=== PATIENT | female | born 1965 | race Caucasian/White ===

== ENCOUNTER 2017-05-16 12:30 | Emergency (ER) | payer MEDICARE ==
[2017-05-16 12:38] VITALS: BMI 21.1
[2017-05-16 12:46] VITALS: TEMP 97.8; O2SAT 100
[2017-05-16] MEDS ORDERED: Sodium Chloride 0.9% 1,000 ML IV STA (12:51)
[2017-05-16] MEDS ORDERED: DiphenhydrAMINE 50 mg/ml Inj IVP STA (12:51)
[2017-05-16 13:19] LABS: PH,URINE 6.5 (4.7-8.0); URINE BILIRUBIN NEGATIVE (NEGATIVE); URINE BLOOD NEGATIVE (NEGATIVE); URINE GLUCOSE (UA) NEGATIVE (NEGATIVE); URINE KETONE NEGATIVE (NEGATIVE); URINE LEUKOCYTE ESTERASE NEGATIVE Leu/uL (NEGATIVE); URINE PROTEIN NEGATIVE mg/dL (<30 mg/dL); URINE UROBILINOGEN 0.2 E.U./dL (<1 E.U./dL)
[2017-05-16 13:23] LABS: URINE APPEARANCE CLEAR (CLEAR); URINE COLOR YELLOW (YELLOW)
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
[2017-05-16 13:36] LABS: BASO # 0.02 K/mm3 (0.0-2.0); BASO % 0.3 % (0.0-3.0); EOS # 0.2 (0.0-0.7); EOS % 3.1 % (1.5-5.0); GRAN # 2.4 (1.4-6.5); GRAN % 31.8 % (50.0-68.0); HEMATOCRIT 32.5 % (36.0-48.0); LYMPH # 4.5 (1.2-3.4); LYMPH % 59.4 % (22.0-35.0); MEAN CELL VOLUME 90.8 fl (80.0-105.0); MEAN CORPUSCULAR HEMOGLOBIN 29.1 pg (25.0-35.0); MEAN PLATELET VOLUME 10.6 fl (7.0-11.0); MONO # 0.4 (0.1-0.6); MONO % 5.4 % (1.0-6.0); RED CELL DISTRIBUTION WIDTH 13.4 % (11.5-14.5); WHITE BLOOD COUNT 7.5 10^3/ul (4.5-11.0)
[2017-05-16 13:43] LABS: ALB/GLOB RATIO 1.5 (1.1-1.8); ALKALINE PHOSPHATASE 85 U/L (38-126); ALT/SGPT 70 U/L (7-56); AST/SGOT 81 U/L (14-36); BILIRUBIN,TOTAL 0.2 mg/dL (0.2-1.3); BLOOD UREA NITROGEN 12 mg/dL (7-21); CALCIUM 9.1 mg/dL (8.4-10.5); CARBON DIOXIDE 29 mmol/L (21-33); CHLORIDE 102 mmol/L (98-107); GFR AFRICAN-AMERICAN 52; GLUCOSE,RANDOM 96 mg/dL (70-110); MAGNESIUM 2.2 mg/dL (1.7-2.2); POTASSIUM 4.1 mmol/L (3.6-5.0); SODIUM 143 mmol/L (132-148); TOTAL PROTEIN 7.2 g/dL (5.8-8.3)
[2017-05-16 13:48] LABS: INR 0.96 (0.93-1.08); PARTIAL THROMBOPLASTIN TIME 30.6 Seconds (25.1-36.5)
[2017-05-16 13:55] LABS: TROPONIN I < 0.01 ng/mL
--- NOTE | 2017-05-16 14:07 | RAD ---
HISTORY: cp COMPARISON: 05/06/2015 TECHNIQUE: Chest PA and lateral FINDINGS: LUNGS: No active pulmonary disease. PLEURA: No significant pleural effusion identified. No pneumothorax apparent. CARDIOVASCULAR: Normal. OSSEOUS STRUCTURES: No significant abnormalities. VISUALIZED UPPER ABDOMEN: Normal. OTHER FINDINGS: None. IMPRESSION: No active disease.
[2017-05-16 15:29] VITALS: RESP 16
[2017-05-16 20:02] VITALS: BP 114/82; PULSE 65
--- NOTE | 2017-05-16 20:53 | CARD ---
APPROVED REPORT EKG Measurement Heart [id number] <Conclusion> Normal sinus rhythm Normal ECG
--- NOTE | 2017-05-17 10:25 | CARD ---
APPROVED REPORT EKG Measurement Heart [id number] 104P [id number] <Conclusion> Sinus bradycardia with short ND Otherwise normal ECG
== END 2017-05-16 20:02 | disposition short-term general hospital (02) ==
LOC: ED 12:30
DX: R07.9 Chest pain, unspecified (principal)
CPT/HCPCS: 71020; 80053; 81003; 82550; 83615; 83735; 83880; 84484; 85025; 85610; 85730; 93005; 96374; 99284; J1200; J2765; J7040

== ENCOUNTER 2017-10-19 10:10 | Emergency (ER) | payer MEDICARE ==
[2017-10-19 10:19] VITALS: BMI 20.9
[2017-10-19 10:30] VITALS: RESP 18; TEMP 98.6
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
[2017-10-19 11:10] LABS: BASO # 0.02 K/mm3 (0.0-2.0); BASO % 0.2 % (0.0-3.0); EOS # 0.4 (0.0-0.7); GRAN # 5.96 (1.4-6.5); GRAN % 50.4 % (50.0-68.0); HEMOGLOBIN 9.8 g/dL (12.0-16.0); LYMPH # 4.9 (1.2-3.4); LYMPH % 41.9 % (22.0-35.0); MEAN CELL VOLUME 89.3 fl (80.0-105.0); MEAN CORPUSCULAR HEMOGLOBIN 28.4 pg (25.0-35.0); MEAN CORPUSCULAR HGB CONC 31.8 g/dl (31.0-37.0); MEAN PLATELET VOLUME 10.5 fl (7.0-11.0); MONO # 0.5 (0.1-0.6); MONO % 4.5 % (1.0-6.0); RBC 3.45 10^6/uL (3.5-6.1); RED CELL DISTRIBUTION WIDTH 13.1 % (11.5-14.5); WHITE BLOOD COUNT 11.8 10^3/ul (4.5-11.0)
[2017-10-19 11:16] LABS: ALB/GLOB RATIO 1.3 (1.1-1.8); ALBUMIN 4.2 g/dL (3.0-4.8); ALT/SGPT 31 U/L (7-56); AST/SGOT 39 U/L (14-36); BLOOD UREA NITROGEN 11 mg/dL (7-21); CALCIUM 9.2 mg/dL (8.4-10.5); GFR AFRICAN-AMERICAN > 60; GFR NON-AFRICAN AMERICAN > 60
[2017-10-19 11:19] LABS: INR 0.91 (0.93-1.08); PARTIAL THROMBOPLASTIN TIME 28.8 Seconds (25.1-36.5); PROTHROMBIN TIME 10.4 SECONDS (9.4-12.5)
[2017-10-19 11:28] LABS: TROPONIN I < 0.01 ng/mL
--- NOTE | 2017-10-19 11:33 | RAD ---
PROCEDURE: CHEST RADIOGRAPH, 1 VIEW HISTORY: 52yoF, left shoulder pain COMPARISON: 05/16/2017 FINDINGS: LUNGS: Clear. PLEURA: No pneumothorax or pleural fluid seen. CARDIOVASCULAR: Normal. OSSEOUS STRUCTURES: No significant abnormalities. VISUALIZED UPPER ABDOMEN: Normal. OTHER FINDINGS: None. IMPRESSION: No active disease.
--- NOTE | 2017-10-19 11:34 | RAD ---
PROCEDURE: Radiographs of the Left Shoulder HISTORY: 52yoF, left shoulder pain COMPARISON: No prior. FINDINGS: BONES: Normal. No fracture. JOINTS: Normal. Glenohumeral and acromioclavicular joints preserved. No osteoarthritis. SOFT TISSUES: Normal. OTHER FINDINGS: None. IMPRESSION: Normal radiographs of the left shoulder.
[2017-10-19 12:14] VITALS: BP 129/72; PULSE 79; O2SAT 96
--- NOTE | 2017-10-19 20:52 | CARD ---
APPROVED REPORT EKG Measurement Heart [id number] 120P27 [id number] <Conclusion> Sinus rhythm with fusion complexes Nonspecific T wave abnormality Abnormal ECG
== END 2017-10-19 12:15 | disposition home or self-care (01) ==
LOC: ED 10:10
DX: M25.512 Pain in left shoulder (principal); Z87.81 Personal history of (healed) traumatic fracture

== ENCOUNTER 2018-09-07 13:18 | Emergency (ER) | payer MEDICARE ==
[2018-09-07 13:30] VITALS: BMI 21.7
[2018-09-07 13:31] VITALS: RESP 18; TEMP 98.5; O2SAT 100
[2018-09-07] MEDS ORDERED: Sodium Chloride 0.9% 1,000 ML IV STA (13:52)
[2018-09-07] MEDS ORDERED: Apap-Butalbital-Caffeine 325-50-40mg Tab PO STA (13:52)
[2018-09-07] MEDS ORDERED: DiphenhydrAMINE 50 mg/ml Inj IVP STA (13:52)
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
[2018-09-07] MEDS ORDERED: DiphenhydrAMINE 50 mg/ml Inj ONE (14:30)
[2018-09-07 14:54] LABS: BASO # 0.01 K/mm3 (0.0-2.0); BASO % 0.1 % (0.0-3.0); EOS # 0.2 (0.0-0.7); HEMOGLOBIN 10.3 g/dL (12.0-16.0); LYMPH # 3.1 (1.2-3.4); LYMPH % 42.5 % (22.0-35.0); MEAN CELL VOLUME 87.7 fl (80.0-105.0); MEAN CORPUSCULAR HEMOGLOBIN 28.1 pg (25.0-35.0); MEAN CORPUSCULAR HGB CONC 32.1 g/dl (31.0-37.0); MEAN PLATELET VOLUME 10.3 fl (7.0-11.0); MONO # 0.3 (0.1-0.6); MONO % 4.6 % (1.0-6.0); RBC 3.66 10^6/uL (3.5-6.1); RED CELL DISTRIBUTION WIDTH 12.9 % (11.5-14.5); WHITE BLOOD COUNT 7.2 10^3/uL (4.5-11.0)
[2018-09-07 14:57] LABS: PH,URINE 6.5 (4.7-8.0); URINE BILIRUBIN NEGATIVE (NEGATIVE); URINE BLOOD NEGATIVE (NEGATIVE); URINE COLOR YELLOW (YELLOW); URINE GLUCOSE (UA) NEGATIVE (NEGATIVE); URINE LEUKOCYTE ESTERASE NEGATIVE Leu/uL (NEGATIVE); URINE PROTEIN NEGATIVE mg/dL (<30 mg/dL); URINE UROBILINOGEN 0.2 E.U./dL (<1 E.U./dL)
[2018-09-07 14:58] LABS: URINE APPEARANCE CLEAR (CLEAR)
[2018-09-07 15:03] LABS: ALB/GLOB RATIO 1.3 (1.1-1.8); ALBUMIN 4.7 g/dL (3.0-4.8); ALT/SGPT 18 U/L (7-56); AST/SGOT 30 U/L (14-36); BLOOD UREA NITROGEN 9 mg/dL (7-21); CALCIUM 9.7 mg/dL (8.4-10.5); GFR NON-AFRICAN AMERICAN > 60
--- NOTE | 2018-09-07 15:49 | CT ---
Date of service: 09/07/2018 PROCEDURE: CT HEAD WITHOUT CONTRAST. HISTORY: chronic headache for over several years COMPARISON: 05/06/2015 TECHNIQUE: Axial computed tomography images were obtained through the head/brain without intravenous contrast. Radiation dose: Total exam DLP = 885.09 mGy-cm. This CT exam was performed using one or more of the following dose reduction techniques: Automated exposure control, adjustment of the mA and/or kV according to patient size, and/or use of iterative reconstruction technique. FINDINGS: HEMORRHAGE: No intracranial hemorrhage. BRAIN: No mass effect or edema. No atrophy or chronic microvascular ischemic changes. VENTRICLES: Unremarkable. No hydrocephalus. CALVARIUM: Unremarkable. PARANASAL SINUSES: Unremarkable as visualized. No significant inflammatory changes. MASTOID AIR CELLS: Unremarkable as visualized. No inflammatory changes. OTHER FINDINGS: None. IMPRESSION: Normal CT of the Head.
[2018-09-07 17:11] VITALS: BP 140/87; PULSE 97
== END 2018-09-07 17:10 | disposition home or self-care (01) ==
LOC: ED 13:18
DX: R51 Headache (principal); F32.9 Major depressive disorder, single episode, unspecified
CPT/HCPCS: 70450; 80053; 81003; 85025; 96361; 96374; 96375; 99285; J1200; J2765; J7030

== ENCOUNTER 2018-12-15 11:50 | Outpatient (CLI) | payer MEDICARE | END 2018-12-15 11:51 | disposition home or self-care (01) | LOC: RAD 11:50 ==